=== PATIENT | female | born 1970 ===

== ENCOUNTER 2016-11-20 22:41 | Emergency (ER) | payer SELFPAY ==
[2016-11-20 23:00] VITALS: BP 129/74; PULSE 90; RESP 18; TEMP 98.3; O2SAT 99
--- NOTE | 2016-11-20 23:28 | ED PDOC ---
HPI: Female Pain Time Seen by Provider: 11/20/16 23:26 Chief Complaint (Nursing): Female Genitourinary Chief Complaint (Provider): bilateral itchy feet/flank pain/vaginal pruiritis History Per: Patient (46 y/o female here for itchy feet x 2 weeks. Notes additional complaint flank pain and vaginal pruiritis. Denies any dysuria/ urinary hesitancy/hematuria/fevers/chills/abdominal pain.) Past Medical History Reviewed: Historical Data, Nursing Documentation, Vital Signs Vital Signs: Last Vital Signs Temp 98.3 F 11/20/16 22:50 Pulse 90 11/20/16 22:50 Resp 18 11/20/16 22:50 BP 129/74 11/20/16 22:50 Pulse Ox 99 11/20/16 22:50 - Family History Family History: States: No Known Family Hx - Home Medications Home Medications: Ambulatory Orders Medication Instructions Recorded Butenafine HCl [Lotrimin Ultra] 0.5 gm TP BID PRN #30 cream..g. 11/21/16 Metronidazole [Flagyl] 500 mg PO BID #14 tablet 11/21/16 - Allergies Allergies/Adverse Reactions: Allergies Allergy/AdvReac Type Severity Reaction Status Date / Time No Known Allergies Allergy Verified 11/20/16 22:50 Review of Systems ROS Statement: Except As Marked, All Systems Reviewed And Found Negative Physical Exam - Reviewed Nursing Documentation Reviewed: Yes Vital Signs Reviewed: Yes - Physical Exam Appears: Positive for: Well, Non-toxic, No Acute Distress Head Exam: Positive for: ATRAUMATIC, NORMAL INSPECTION, NORMOCEPHALIC Skin: Positive for: Normal Color, Warm, DRY Eye Exam: Positive for: EOMI, Normal appearance, PERRL ENT: Positive for: Normal ENT Inspection Neck: Positive for: Normal, Painless ROM Cardiovascular/Chest: Positive for: Regular Rate, Rhythm Respiratory: Positive for: CNT, Normal Breath Sounds Gastrointestinal/Abdominal: Positive for: Normal Exam, Bowel Sounds, Soft. Negative for: Tenderness Pelvic Exam: Positive for: Discharge (YELLOWISH DISCHARGE. NONTENDER CERVIX.) Back: Positive for: Normal Inspection. Negative for: L CVA Tenderness, R CVA Tenderness Extremity: Positive for: Normal ROM, Other (scaly skin noted between webspace of digits of feet bilaterally.) Neurologic/Psych: Positive for: Alert, Oriented - Laboratory Results Urine POC: Negative Urine dip results: Positive for: Leukocyte Esterase. Negative for: Blood, Nitrate, Ketones, Glucose, Protein - ECG O2 Sat by Pulse Oximetry: 99 - Progress ED Course And Treament: ROCEPIN 250 MG IM ZITHROMAX 1 GM PO X 1 DOSE ACCUCHECK 101 Disposition - Clinical Impression Clinical Impression: Vaginitis, Tinea pedis - Patient ED Disposition Is Patient to be Admitted: No - Disposition Referrals: [facility] [Outside] Disposition: Routine/Home Disposition Time: 00:07 Condition: FAIR Prescriptions: Butenafine HCl [Lotrimin Ultra] 0.5 gm TP BID PRN #30 cream..g. PRN Reason: Itching / Pruritus Metronidazole [Flagyl] 500 mg PO BID #14 tablet Instructions: Tinea Pedis (ED), Vaginitis (ED) Forms: [employer] (Lao) Print Language: IRISH
[2016-11-21] MEDS ORDERED: cefTRIAXone (Rocephin) 250 mg Inj IM ONE (00:05)
[2016-11-21] MEDS ORDERED: Sterile Water 10 ML IV ONE (00:10)
== END 2016-11-21 00:50 | disposition home or self-care (01) ==
LOC: H.ER 22:41
DX: B35.3 Tinea pedis (principal); N76.0 Acute vaginitis
CPT/HCPCS: 82948; 87070; 96372; 99282; J0696